=== PATIENT | female | born 1950 | race Caucasian/White ===

== ENCOUNTER 2018-10-09 14:14 | Inpatient (IN) ==
[2018-10-09] MEDS ORDERED: ACETAMINOPHEN 325 MG TABLET PO PRN (17:29)
[2018-10-09] MEDS ORDERED: ZALEPLON 5 MG CAPSULE PO PRN (17:29)
[2018-10-09] MEDS ORDERED: ONDANSETRON 4 MG/2 ML VIAL IV PRN (17:29)
[2018-10-09] MEDS ORDERED: SODIUM CHLORIDE 0.9% 1,000 ML IV SCH (17:30)
[2018-10-09 18:06] LABS: ABG Base Excess -0.3 MMOL/L (-2.5-2.5); ABG HCO3 24.2 MMOL/L (20-26); ABG PCO2 43.6 MM HG (35-48)
[2018-10-09 18:24] LABS: Basophils % 0.3 % (0.0-0.8); Eosinophils % 0.1 % (0.00-10.9); Hematocrit 41.1 VOL% (35.7-47.0); Hemoglobin 12.6 GM/DL (12.0-16.0); Immature Granulocytes % 0.5 %; Immature Granulocytes Absolute 0.07 #; Lymphocytes # 0.6 10*3/uL (1.4-4.0); Mean Corpuscular HGB Conc 30.7 GM/DL (32-36); Mean Corpuscular Hemoglobin 32 PG (27-34); Mean Corpuscular Volume 105.7 FL (87-102); Mean Platelet Volume 11.3 FL (9.6-12.0); Monocytes # 0.8 10*3/uL (0.11-0.8); Neutrophils # 13.7 10*3/uL (1.4-7.4); Neutrophils % 90.1 % (38.7-73.9); Platelet Count 298 T/CUMM (130-400); Red Blood Count 3.89 MC/CUMM (3.8-5.5); Red Cell Distribution Width 14.3 % (9.3-17.3); White Blood Count 15.2 T/CUMM (4-12)
[2018-10-09] MEDS: PIPERACILLIN/TAZOBACTAM 3,375 MG in SODIUM CHLORIDE 0.9% 100 ML IV SCH (18:45)
[2018-10-09 18:47] LABS: Alanine Aminotransferase 46 U/L (13-56); Alkaline Phosphatase 111 U/L (45-117); Aspartate Amino Transferase 38 U/L (0-37); Bilirubin,Total < 0.39 MG/DL (0.2-1.0); Blood Urea Nitrogen 34 MG/DL (7-18); Calcium 9.2 MG/DL (8.5-10.1); Glucose 144 MG/DL (74-106); Potassium 3.9 MMOL/L (3.5-5.1); Sodium 143 MMOL/L (136-145); Total Protein 7.2 G/DL (6.4-8.3)
[2018-10-09 19:05] LABS: Band Neutrophils 6 % (0-10); Lymphocytes 3 % (20-55); Segmented Neutrophils 89 % (50-85)
[2018-10-09 19:06] LABS: Platelet Estimate Adequate; Total Cells Counted 100
[2018-10-09] MEDS: SIMVASTATIN 10 MG TABLET PO SCH (20:45)
[2018-10-09] MEDS: GABAPENTIN 600 MG TABLET PO SCH (20:45)
[2018-10-09] MEDS: MONTELUKAST 10 MG TABLET PO SCH (20:47)
[2018-10-09] MEDS: DOCUSATE SODIUM 100 MG CAPSULE PO SCH (20:47)
[2018-10-09] MEDS: ENOXAPARIN 40 MG/0.4 ML SYRINGE SUBCUT SCH (20:48)
[2018-10-09] MEDS: OMEGA 3 ACID ETHYL ESTERS 1 GM CAPSULE PO SCH (20:48)
[2018-10-09] MEDS: FLUTICASONE 50 MCG NASAL SPRAY 16 GM BOTTLE BOTH NARES SCH (20:52)
[2018-10-09] MEDS: DICLOFENAC 1% GEL 100 GM TUBE TOP SCH (20:52)
[2018-10-10] MEDS: PIPERACILLIN/TAZOBACTAM 3,375 MG in SODIUM CHLORIDE 0.9% 100 ML IV SCH ×3 (01:30→20:03)
[2018-10-10 06:17] LABS: Basophils % 0.2 % (0.0-0.8); Eosinophils # 0.1 10*3/uL (0.0-0.87); Eosinophils % 0.8 % (0.00-10.9); Hematocrit 40.4 VOL% (35.7-47.0); Hemoglobin 12.4 GM/DL (12.0-16.0); Immature Granulocytes % 0.5 %; Immature Granulocytes Absolute 0.05 #; Lymphocytes # 1.3 10*3/uL (1.4-4.0); Lymphocytes % 12.3 % (21.3-54.2); Mean Corpuscular HGB Conc 30.7 GM/DL (32-36); Mean Corpuscular Hemoglobin 32 PG (27-34); Mean Corpuscular Volume 104.7 FL (87-102); Mean Platelet Volume 11.1 FL (9.6-12.0); Monocytes # 1.1 10*3/uL (0.11-0.8); Monocytes % 10.5 % (1.7-12.7); Neutrophils # 8.1 10*3/uL (1.4-7.4); Neutrophils % 75.7 % (38.7-73.9); Platelet Count 289 T/CUMM (130-400); Red Blood Count 3.86 MC/CUMM (3.8-5.5); Red Cell Distribution Width 14.6 % (9.3-17.3); White Blood Count 10.7 T/CUMM (4-12)
[2018-10-10 06:38] LABS: Calcium 9.1 MG/DL (8.5-10.1); Osmolality,Calculated 297.7 MOS/KG (273-304); Potassium 3.4 MMOL/L (3.5-5.1); Risk Ratio 3.12; VLDL CHOLESTEROL 44.4 MG/DL
[2018-10-10] MEDS: DICLOFENAC 1% GEL 100 GM TUBE TOP SCH ×3 (09:00→21:04)
[2018-10-10] MEDS: POLYETHYLENE GLYCOL POWDER 17 GM PACK PO SCH (09:00)
[2018-10-10] MEDS ORDERED: NON-FORMULARY MEDICATION (Brexpiprazole [Rexulti] 1 MG) PO SCH (09:00)
[2018-10-10] MEDS: ALLOPURINOL 300 MG TABLET PO SCH (09:30)
[2018-10-10] MEDS ORDERED: LACTULOSE 20 GM/30 ML UDCUP PO ONE (09:47)
[2018-10-10] MEDS: MULTIVITAMIN (CENTRUM) TABLET PO SCH (10:37)
[2018-10-10] MEDS: LORATADINE 10 MG TABLET PO SCH (10:38)
[2018-10-10] MEDS: GABAPENTIN 600 MG TABLET PO SCH ×2 (10:38→21:04)
[2018-10-10] MEDS: DOCUSATE SODIUM 100 MG CAPSULE PO SCH ×2 (10:38→21:04)
[2018-10-10] MEDS: OMEGA 3 ACID ETHYL ESTERS 1 GM CAPSULE PO SCH ×2 (10:38→21:04)
[2018-10-10] MEDS: FLUTICASONE 50 MCG NASAL SPRAY 16 GM BOTTLE BOTH NARES SCH ×2 (10:38→21:04)
[2018-10-10] MEDS ORDERED: LEVOFLOXACIN INJ 500 MG in PREMIX 1 EACH IV SCH (12:00)
[2018-10-10] MEDS ORDERED: POTASSIUM CHLORIDE 20 MEQ TABLET PO PRN (14:22)
[2018-10-10] MEDS: CLOPIDOGREL 75 MG TABLET PO SCH (14:56)
[2018-10-10] MEDS: guaiFENesin/DM ER 600-30 MG TABLET PO PRN (14:56)
[2018-10-10] MEDS: PANTOPRAZOLE 40 MG TABLET PO SCH (14:56)
[2018-10-10] MEDS: DULoxetine 30 MG CAPSULE PO SCH (14:56)
[2018-10-10 15:56] LABS: Apearance,Urine Slightly Hazy (Clear); Bacteria,Urine Occasional /HPF (Few); Bilirubin,Urine Negative (Negative); Blood, Urine Moderate mg/dL (Negative); Glucose,Urine (UA) Negative (Negative); Ketones,Urine Negative (Negative); Mucus,Urine Occasional /LPF (Occasional); Nitrite,Urine Negative (Negative); Protein,Urine 100 MG/DL; RBC,Urine 43 /HPF (0-4); Squamous Epithelial Cell,Urine Occasional /HPF (0-10); Urine Color Yellow (Yellow); Urine Specific Gravity 1.017 (1.001-1.035); Urine Urobilinogen < 2.0 EU/DL (0.2-1.0); WBC,Urine 37 /HPF (0-6)
[2018-10-10] MEDS: SODIUM CHLORIDE 0.45% 1,000 ML IV SCH (18:05)
[2018-10-10] MEDS: ENOXAPARIN 40 MG/0.4 ML SYRINGE SUBCUT SCH (21:04)
[2018-10-10] MEDS: MONTELUKAST 10 MG TABLET PO SCH (21:04)
[2018-10-10] MEDS: SIMVASTATIN 10 MG TABLET PO SCH (21:04)
[2018-10-11] MEDS: PIPERACILLIN/TAZOBACTAM 3,375 MG in SODIUM CHLORIDE 0.9% 100 ML IV SCH ×3 (02:02→20:34)
[2018-10-11 05:16] LABS: Basophils % 0.4 % (0.0-0.8); Eosinophils # 0.2 10*3/uL (0.0-0.87); Eosinophils % 2.4 % (0.00-10.9); Hemoglobin 11.8 GM/DL (12.0-16.0); Immature Granulocytes % 0.4 %; Immature Granulocytes Absolute 0.04 #; Lymphocytes # 1.7 10*3/uL (1.4-4.0); Lymphocytes % 17.2 % (21.3-54.2); Mean Corpuscular HGB Conc 30.3 GM/DL (32-36); Mean Corpuscular Hemoglobin 32 PG (27-34); Mean Corpuscular Volume 107.1 FL (87-102); Mean Platelet Volume 10.6 FL (9.6-12.0); Monocytes # 1.3 10*3/uL (0.11-0.8); Monocytes % 12.9 % (1.7-12.7); Neutrophils # 6.8 10*3/uL (1.4-7.4); Neutrophils % 66.7 % (38.7-73.9); Platelet Count 252 T/CUMM (130-400); Red Blood Count 3.64 MC/CUMM (3.8-5.5); White Blood Count 10.1 T/CUMM (4-12)
[2018-10-11 05:38] LABS: Calcium 8.7 MG/DL (8.5-10.1); Osmolality,Calculated 297.4 MOS/KG (273-304); Potassium 3.4 MMOL/L (3.5-5.1)
[2018-10-11] MEDS ORDERED: POTASSIUM CHLORIDE 20 MEQ TABLET PO ONE (07:17)
[2018-10-11] MEDS ORDERED: MAGNESIUM SULF RIDER 2 GM in PREMIX 1 EACH IV ONE (07:17)
[2018-10-11] MEDS: DULoxetine 30 MG CAPSULE PO SCH (09:49)
[2018-10-11] MEDS: PANTOPRAZOLE 40 MG TABLET PO SCH (09:50)
[2018-10-11] MEDS: OMEGA 3 ACID ETHYL ESTERS 1 GM CAPSULE PO SCH ×2 (09:50→20:36)
[2018-10-11] MEDS: GABAPENTIN 600 MG TABLET PO SCH ×2 (09:50→20:35)
[2018-10-11] MEDS: METHEN/SOD PHOS/METH BLUE/HYOS TABLET PO SCH ×4 (09:50→21:10)
[2018-10-11] MEDS: DOCUSATE SODIUM 100 MG CAPSULE PO SCH ×2 (09:50→20:36)
[2018-10-11] MEDS: guaiFENesin/DM ER 600-30 MG TABLET PO PRN (09:50)
[2018-10-11] MEDS: MULTIVITAMIN (CENTRUM) TABLET PO SCH (09:51)
[2018-10-11] MEDS: POLYETHYLENE GLYCOL POWDER 17 GM PACK PO SCH (09:51)
[2018-10-11] MEDS: CLOPIDOGREL 75 MG TABLET PO SCH (09:51)
[2018-10-11] MEDS: LORATADINE 10 MG TABLET PO SCH (09:51)
[2018-10-11] MEDS: FLUTICASONE 50 MCG NASAL SPRAY 16 GM BOTTLE BOTH NARES SCH ×2 (09:53→21:11)
[2018-10-11] MEDS: DICLOFENAC 1% GEL 100 GM TUBE TOP SCH ×3 (09:53→21:11)
[2018-10-11] MEDS: ALLOPURINOL 300 MG TABLET PO SCH (10:14)
[2018-10-11] MEDS: DEXTROSE 5% 1,000 ML IV SCH (17:22)
[2018-10-11] MEDS: SIMVASTATIN 10 MG TABLET PO SCH (20:36)
[2018-10-11] MEDS: MONTELUKAST 10 MG TABLET PO SCH (20:36)
[2018-10-12] MEDS: PIPERACILLIN/TAZOBACTAM 3,375 MG in SODIUM CHLORIDE 0.9% 100 ML IV SCH ×2 (05:40→14:04)
[2018-10-12 06:14] LABS: Basophils % 0.4 % (0.0-0.8); Eosinophils # 0.6 10*3/uL (0.0-0.87); Eosinophils % 6.2 % (0.00-10.9); Hematocrit 35.8 VOL% (35.7-47.0); Hemoglobin 10.7 GM/DL (12.0-16.0); Immature Granulocytes % 0.4 %; Immature Granulocytes Absolute 0.04 #; Lymphocytes % 21.2 % (21.3-54.2); Mean Corpuscular HGB Conc 29.9 GM/DL (32-36); Mean Corpuscular Hemoglobin 32 PG (27-34); Mean Corpuscular Volume 107.8 FL (87-102); Monocytes # 1.1 10*3/uL (0.11-0.8); Monocytes % 11.8 % (1.7-12.7); Neutrophils # 5.7 10*3/uL (1.4-7.4); Platelet Count 253 T/CUMM (130-400); Red Blood Count 3.32 MC/CUMM (3.8-5.5); Red Cell Distribution Width 14.2 % (9.3-17.3); White Blood Count 9.5 T/CUMM (4-12)
[2018-10-12 06:32] LABS: Osmolality,Calculated 292.7 MOS/KG (273-304); Potassium 3.5 MMOL/L (3.5-5.1)
[2018-10-12] MEDS: METHEN/SOD PHOS/METH BLUE/HYOS TABLET PO SCH ×2 (09:05→14:04)
[2018-10-12] MEDS: FLUTICASONE 50 MCG NASAL SPRAY 16 GM BOTTLE BOTH NARES SCH (09:05)
[2018-10-12] MEDS: DULoxetine 30 MG CAPSULE PO SCH (09:05)
[2018-10-12] MEDS: DOCUSATE SODIUM 100 MG CAPSULE PO SCH (09:05)
[2018-10-12] MEDS: GABAPENTIN 600 MG TABLET PO SCH (09:05)
[2018-10-12] MEDS: OMEGA 3 ACID ETHYL ESTERS 1 GM CAPSULE PO SCH (09:05)
[2018-10-12] MEDS: CLOPIDOGREL 75 MG TABLET PO SCH (09:05)
[2018-10-12] MEDS: ALLOPURINOL 300 MG TABLET PO SCH (09:05)
[2018-10-12] MEDS: POLYETHYLENE GLYCOL POWDER 17 GM PACK PO SCH (09:05)
[2018-10-12] MEDS: MULTIVITAMIN (CENTRUM) TABLET PO SCH (09:05)
[2018-10-12] MEDS: DICLOFENAC 1% GEL 100 GM TUBE TOP SCH (09:06)
[2018-10-12] MEDS: PANTOPRAZOLE 40 MG TABLET PO SCH (09:06)
[2018-10-12] MEDS: LORATADINE 10 MG TABLET PO SCH (09:08)
[2018-10-12] MEDS: SODIUM CHLORIDE 0.45% 1,000 ML IV SCH (09:15)
[2018-10-12] MEDS ORDERED: LEVOFLOXACIN INJ 500 MG in PREMIX 1 EACH IV SCH (10:00)
[2018-10-12] MEDS: DEXTROSE 5% 1,000 ML IV SCH (11:48)
[2018-10-12 13:22] VITALS: BP 131/85
== END 2018-10-12 13:40 | DRG 689 ==
LOC: N.5E 15:58 → SUATTDRO 15:58
PROVIDERS: ADMIT Internal Medicine; ATTEND Family Medicine